=== PATIENT | female | born 1995 | race African-American/Black ===

== ENCOUNTER 2019-08-17 12:44 | Emergency (ER) | payer MEDICAID, OTHER ==
[~2019-08-17] VITALS: Ht 162.6 cm; Wt 170.0 kg
[2019-08-17 13:03] VITALS: BP 155/94
== END 2019-08-17 13:47 | disposition home or self-care (01) ==
LOC: ER 12:44
DX: J06.9 Acute upper respiratory infection, unspecified (principal)
CPT/HCPCS: 99283

== ENCOUNTER 2019-09-05 18:01 | Emergency (ER) | payer OTHER ==
[~2019-09-05] VITALS: Ht 167.6 cm; Wt 160.0 kg
[2019-09-05 20:53] LABS: CHLORIDE 109 mEq/L (98-107)
[2019-09-05 20:57] LABS: BASOPHILS % 0.9 % (0.0-2.0); EOSINOPHILS % 2.4 % (0.0-5.0); ETHANOL BLOOD < 10 mg/dL; HEMATOCRIT. 38.6 % (36.0-48.0); HEMOGLOBIN. 12.8 g/dL (12.0-16.0); LYMPHOCYTES % 32.5 % (20.0-50.0); MEAN CORPUSCULAR HEMOGLOBIN 27.2 pg (28.0-32.0); MEAN PLATELET VOLUME 9.2 fl (7.4-10.4); MONOCYTES % 8.3 % (2.0-8.0); NEUTROPHILS % 55.9 % (40.0-76.0); PLATELET 291 x1000/uL (130-400); RED BLOOD CELL COUNT 4.71 mill/uL (4.2-5.4); RED CELL DISTRIBUTION WIDTH 15.3 % (11.6-14.6)
[2019-09-05 20:58] LABS: CANNABINOID URINE SCREEN NEGATIVE (NEGATIVE); PHENCYCLIDINE URINE SCREEN NEGATIVE (NEGATIVE)
[2019-09-05 20:59] LABS: *BARBITURATES SCREEN URINE NEGATIVE (NEGATIVE); *BENZODIAZEPINES SCREEN URINE NEGATIVE (NEGATIVE); *COCAINE SCREEN URINE NEGATIVE (NEGATIVE); METHADONE URINE SCREEN NEGATIVE (NEGATIVE); OPIATES URINE SCREEN NEGATIVE (NEGATIVE)
[2019-09-05 21:13] LABS: *AMPHETAMINES SCREEN URINE PRESUMTIVE POSITIVE (NEGATIVE)
[2019-09-05] MEDS ORDERED: LORAZEPAM 0.5MG TABLET PO ONE (21:30)
[2019-09-06 19:53] LABS: CLARITY URINE CLEAR (CLEAR); COLOR URINE YELLOW (YELLOW); KETONES URINE TRACE (NEGATIVE); LEUKOCYTE ESTERASE URINE NEGATIVE (NEGATIVE); NITRITE URINE NEGATIVE (NEGATIVE); OCCULT BLOOD URINE NEGATIVE (NEGATIVE); PH URINE 5.5 (4.5-8.0); PROTEIN URINE NEGATIVE (NEGATIVE); SPECIFIC GRAVITY URINE 1.032 (1.005-1.030); UROBILINOGEN URINE 0.2 E.U./dL (0.2-1.0)
[2019-09-06] MEDS ORDERED: LORAZEPAM 1MG TABLET PO ONE (20:45)
[2019-09-07] MEDS ORDERED: ACETAMINOPHEN 325MG TABLET PO ONE (09:45)
[2019-09-08 00:03] VITALS: BP 129/71
== END 2019-09-08 00:22 ==
LOC: ER 18:01
DX: F20.9 Schizophrenia, unspecified (principal); R45.851 Suicidal ideations; M79.641 Pain in right hand; F15.10 Other stimulant abuse, uncomplicated
CPT/HCPCS: 36415; 73130; 80305; 80320; 81025; 82962; 99285; G0480

== ENCOUNTER 2021-12-11 20:02 | Emergency (ER) | payer MEDICAID, OTHER ==
[~2021-12-11] VITALS: Ht 167.6 cm; Wt 118.0 kg
[2021-12-11 22:27] LABS: EOSINOPHILS % 1.9 % (0.0-5.0); HEMOGLOBIN. 11.9 g/dL (12.0-16.0); LYMPHOCYTES % 30.7 % (20.0-50.0); MEAN CORPUSCULAR HEMOGLOBIN 26.6 pg (28.0-32.0); MEAN CORPUSCULAR VOLUME 80.7 fL (81.0-99.0); MEAN PLATELET VOLUME 8.6 fl (7.4-10.4); MONOCYTES % 7.7 % (2.0-8.0); NEUTROPHILS % 58.7 % (40.0-76.0); PLATELET 355 x1000/uL (130-400); RED BLOOD CELL COUNT 4.46 mill/uL (4.2-5.4)
[2021-12-11 22:34] LABS: CHLORIDE 110 mEq/L (98-107)
[2021-12-11 22:38] LABS: ETHANOL BLOOD < 10 mg/dL
[2021-12-11 23:03] LABS: CLARITY URINE CLOUDY (CLEAR); COLOR URINE YELLOW (YELLOW); KETONES URINE NEGATIVE (NEGATIVE); LEUKOCYTE ESTERASE URINE 2+ (NEGATIVE); NITRITE URINE NEGATIVE (NEGATIVE); OCCULT BLOOD URINE TRACE (NEGATIVE); PROTEIN URINE 1+ (NEGATIVE); SPECIFIC GRAVITY URINE 1.034 (1.005-1.030)
[2021-12-11 23:08] LABS: *AMPHETAMINES SCREEN URINE NEGATIVE (NEGATIVE); *BARBITURATES SCREEN URINE NEGATIVE (NEGATIVE); *BENZODIAZEPINES SCREEN URINE NEGATIVE (NEGATIVE); METHADONE URINE SCREEN NEGATIVE (NEGATIVE); OPIATES URINE SCREEN NEGATIVE (NEGATIVE)
[2021-12-11 23:09] LABS: PHENCYCLIDINE URINE SCREEN NEGATIVE (NEGATIVE)
[2021-12-11 23:11] LABS: *COCAINE SCREEN URINE PRESUMTIVE POSITIVE (NEGATIVE); CANNABINOID URINE SCREEN PRESUMTIVE POSITIVE (NEGATIVE)
[2021-12-12] MEDS: ARIPIPRAZOLE 5MG TABLET PO SCH (10:56)
[2021-12-12] MEDS ORDERED: TRAZODONE HCL 50MG TABLET PO SCH (21:00)
[2021-12-13] MEDS: ARIPIPRAZOLE 5MG TABLET PO SCH (10:10)
[2021-12-13 12:00] VITALS: BP 120/78
== END 2021-12-13 13:20 | disposition short-term general hospital (02) ==
LOC: ER 20:02
DX: U07.1 COVID-19 (principal); R45.851 Suicidal ideations; F14.10 Cocaine abuse, uncomplicated; F17.200 Nicotine dependence, unspecified, uncomplicated; F15.10 Other stimulant abuse, uncomplicated; I10 Essential (primary) hypertension; Z88.0 Allergy status to penicillin; Z86.59 Personal history of other mental and behavioral disorders
CPT/HCPCS: 36415; 80053; 80305; 80307; 80320; 80329; 81003; 85025; 99285; C9803; U0003; U0005; G0480

== ENCOUNTER 2022-01-01 16:46 | Emergency (ER) | payer MEDICAID ==
[~2022-01-01] VITALS: Ht 172.7 cm; Wt 137.0 kg
[2022-01-01] MEDS ORDERED: SODIUM CHLORIDE 0.9% 1,000 ML IV ONE (17:00)
[2022-01-01 17:41] LABS: BASOPHILS % 0.5 % (0.0-2.0); EOSINOPHILS % 2.6 % (0.0-5.0); HEMATOCRIT. 33.4 % (36.0-48.0); HEMOGLOBIN. 11.3 g/dL (12.0-16.0); LYMPHOCYTES % 23.1 % (20.0-50.0); MEAN CORPUSCULAR HEMOGLOBIN 27.6 pg (28.0-32.0); MEAN CORPUSCULAR VOLUME 81.4 fL (81.0-99.0); MEAN PLATELET VOLUME 8.7 fl (7.4-10.4); MONOCYTES % 10.2 % (2.0-8.0); NEUTROPHILS % 63.6 % (40.0-76.0); PLATELET 257 x1000/uL (130-400); RED CELL DISTRIBUTION WIDTH 14.8 % (11.6-14.6)
[2022-01-01 17:46] LABS: CHLORIDE 105 mEq/L (98-107)
[2022-01-01 17:49] LABS: ETHANOL BLOOD < 10 mg/dL
[2022-01-01 18:09] LABS: B-HCG QUANTITATIVE 47786 mIU/mL (<3)
[2022-01-01 18:28] VITALS: BP 135/60
[2022-01-01] MEDS ORDERED: PREN-52 MT (19:10)
== END 2022-01-01 16:57 | disposition home or self-care (01) ==
LOC: ER 16:46
DX: O99.511 Diseases of the respiratory system complicating pregnancy, first trimester (principal); O26.891 Other specified pregnancy related conditions, first trimester; F14.10 Cocaine abuse, uncomplicated; F15.10 Other stimulant abuse, uncomplicated; I10 Essential (primary) hypertension; Z98.890 Other specified postprocedural states; Z86.59 Personal history of other mental and behavioral disorders; Z88.0 Allergy status to penicillin; Z3A.01 Less than 8 weeks gestation of pregnancy
CPT/HCPCS: 36415; 76801; 76817; 80053; 80307; 80320; 80329; 84702; 85025; 86850; 86900; 86901; 93005; 99285; J7030; G0480

== ENCOUNTER 2022-01-18 17:11 | Emergency (ER) | payer MEDICAID ==
[~2022-01-18] VITALS: Ht 172.7 cm; Wt 180.0 kg
[~2022-01-18 17:11] MED LIST: PREN-52 MT
[2022-01-18] MEDS ORDERED: BENZTROPINE MESYLATE (17:22)
[2022-01-18] MEDS ORDERED: cogentin (17:22)
[2022-01-18] MEDS ORDERED: albuterol (17:22)
[2022-01-18] MEDS ORDERED: prozac (17:22)
[2022-01-18] MEDS ORDERED: chlorpromazine (17:22)
[2022-01-18] MEDS ORDERED: furosemide (17:22)
[2022-01-18] MEDS ORDERED: seroquel (17:22)
[2022-01-18] MEDS ORDERED: depakote (17:22)
[2022-01-18] MEDS ORDERED: haldol (17:22)
[2022-01-18 22:00] LABS: BASOPHILS % 0.4 % (0.0-2.0); EOSINOPHILS % 3.5 % (0.0-5.0); HEMATOCRIT. 32.3 % (36.0-48.0); HEMOGLOBIN. 10.7 g/dL (12.0-16.0); LYMPHOCYTES % 25.7 % (20.0-50.0); MEAN CORPUSCULAR HEMOGLOBIN 27.1 pg (28.0-32.0); MEAN CORPUSCULAR VOLUME 81.4 fL (81.0-99.0); MEAN PLATELET VOLUME 8.9 fl (7.4-10.4); MONOCYTES % 6.8 % (2.0-8.0); NEUTROPHILS % 63.6 % (40.0-76.0); PLATELET 258 x1000/uL (130-400); RED BLOOD CELL COUNT 3.96 mill/uL (4.2-5.4); RED CELL DISTRIBUTION WIDTH 15.4 % (11.6-14.6)
[2022-01-18 22:02] LABS: CHLORIDE 107 mEq/L (98-107)
[2022-01-18 22:06] LABS: ETHANOL BLOOD < 10 mg/dL
[2022-01-18 22:09] LABS: HCG SCREEN POSITIVE
[2022-01-18] MEDS ORDERED: POTASSIUM CHLORIDE 20MEQ TABLET SR PO ONE (22:15)
[2022-01-19 00:12] LABS: CLARITY URINE CLEAR (CLEAR); COLOR URINE YELLOW (YELLOW); KETONES URINE 1+ (NEGATIVE); LEUKOCYTE ESTERASE URINE 2+ (NEGATIVE); NITRITE URINE NEGATIVE (NEGATIVE); OCCULT BLOOD URINE NEGATIVE (NEGATIVE); PH URINE 6.5 (4.5-8.0); PROTEIN URINE NEGATIVE (NEGATIVE); SPECIFIC GRAVITY URINE 1.017 (1.005-1.030)
[2022-01-19 00:29] LABS: *AMPHETAMINES SCREEN URINE NEGATIVE (NEGATIVE); *BARBITURATES SCREEN URINE NEGATIVE (NEGATIVE); *BENZODIAZEPINES SCREEN URINE NEGATIVE (NEGATIVE)
[2022-01-19 00:30] LABS: *COCAINE SCREEN URINE NEGATIVE (NEGATIVE); CANNABINOID URINE SCREEN NEGATIVE (NEGATIVE); METHADONE URINE SCREEN NEGATIVE (NEGATIVE); OPIATES URINE SCREEN NEGATIVE (NEGATIVE); PHENCYCLIDINE URINE SCREEN NEGATIVE (NEGATIVE)
[2022-01-19] MEDS ORDERED: DIPHENHYDRAMINE 50MG CAPSULE PO ONE (02:45)
[2022-01-19] MEDS: CEPHALEXIN 250MG CAPSULE PO NR ×3 (06:00→06:03)
[2022-01-19] MEDS ORDERED: NITROFURANTOIN 100MG M/M CAPSULE PO SCH (09:00)
[2022-01-19] MEDS ORDERED: CEPHALEXIN 250MG CAPSULE PO ONE (19:45)
[2022-01-20] MEDS: PRENATAL VIT/FE FUMARATE/FA TABLET PO SCH (19:28)
[2022-01-21] MEDS ORDERED: OLANZAPINE 10 MG/VIAL IM ONE (08:15)
[2022-01-21] MEDS: PRENATAL VIT/FE FUMARATE/FA TABLET PO SCH (09:35)
[2022-01-22] MEDS: PRENATAL VIT/FE FUMARATE/FA TABLET PO SCH (09:19)
[2022-01-22 11:53] VITALS: BP 121/52
== END 2022-01-22 13:12 | disposition home or self-care (01) ==
LOC: ER 17:11
DX: R45.851 Suicidal ideations (principal); R44.0 Auditory hallucinations; J45.909 Unspecified asthma, uncomplicated; F31.9 Bipolar disorder, unspecified; I10 Essential (primary) hypertension; F14.10 Cocaine abuse, uncomplicated; F15.10 Other stimulant abuse, uncomplicated; Z79.899 Other long term (current) drug therapy; Z20.822 Contact with and (suspected) exposure to COVID-19
CPT/HCPCS: 36415; 76801; 80053; 80307; 80320; 80329; 81025; 84703; 85025; 87426; 99285; J3490; U0003; Q0163; G0480

== ENCOUNTER 2022-09-27 19:34 | Emergency (ER) | payer MEDICAID ==
[~2022-09-27] VITALS: Ht 175.3 cm; Wt 110.0 kg
[~2022-09-27 19:34] MED LIST changes: +BENZTROPINE MESYLATE; +albuterol; +chlorpromazine; +cogentin; +depakote; +furosemide; +haldol; +prozac; +seroquel
[2022-09-28] MEDS ORDERED: ACETAMINOPHEN 325MG TABLET PO ONE (09:00)
[2022-09-28 09:46] LABS: *BARBITURATES SCREEN URINE NEGATIVE (NEGATIVE); *BENZODIAZEPINES SCREEN URINE NEGATIVE (NEGATIVE); *COCAINE SCREEN URINE NEGATIVE (NEGATIVE); METHADONE URINE SCREEN NEGATIVE (NEGATIVE); OPIATES URINE SCREEN NEGATIVE (NEGATIVE); PHENCYCLIDINE URINE SCREEN NEGATIVE (NEGATIVE)
[2022-09-28 09:51] LABS: BASOPHILS % 0.4 % (0.0-2.0); EOSINOPHILS % 1.9 % (0.0-5.0); HEMATOCRIT. 34.5 % (36.0-48.0); LYMPHOCYTES % 22.2 % (20.0-50.0); MEAN CORPUSCULAR HEMOGLOBIN 23.5 pg (28.0-32.0); MEAN PLATELET VOLUME 8.6 fl (7.4-10.4); MONOCYTES % 9.8 % (2.0-8.0); NEUTROPHILS % 65.7 % (40.0-76.0); PLATELET 427 x1000/uL (130-400); RED BLOOD CELL COUNT 4.67 mill/uL (4.2-5.4); RED CELL DISTRIBUTION WIDTH 17.6 % (11.6-14.6)
[2022-09-28 10:00] LABS: CHLORIDE 104 mEq/L (98-107)
[2022-09-28 10:00] LABS: *AMPHETAMINES SCREEN URINE PRESUMTIVE POSITIVE (NEGATIVE); CANNABINOID URINE SCREEN PRESUMTIVE POSITIVE (NEGATIVE)
[2022-09-28 10:13] LABS: ETHANOL BLOOD < 10 mg/dL
[2022-09-28 11:18] LABS: HCG SCREEN NEGATIVE
[2022-09-28] MEDS: TRAZODONE HCL 50MG TABLET PO SCH (21:00)
[2022-09-28] MEDS: RISPERIDONE 1MG TABLET PO SCH (21:00)
[2022-09-28] MEDS ORDERED: LORAZEPAM 2MG/ML CPJ IM ONE (22:15)
[2022-09-28] MEDS ORDERED: HALOPERIDOL LACTATE 5MG/ML VIAL IM ONE (22:15)
[2022-09-29] MEDS: RISPERIDONE 1MG TABLET PO SCH ×2 (09:40→22:00)
[2022-09-29] MEDS: TRAZODONE HCL 50MG TABLET PO SCH (22:00)
[2022-09-30] MEDS: RISPERIDONE 1MG TABLET PO SCH (09:00)
[2022-09-30 12:30] VITALS: BP 150/65
== END 2022-09-30 13:07 ==
LOC: ER 19:34
DX: R45.851 Suicidal ideations (principal); I10 Essential (primary) hypertension; J45.909 Unspecified asthma, uncomplicated; Z20.822 Contact with and (suspected) exposure to COVID-19; Z88.0 Allergy status to penicillin; Z79.899 Other long term (current) drug therapy; Z86.59 Personal history of other mental and behavioral disorders
CPT/HCPCS: 36415; 80053; 80305; 80307; 80320; 80329; 84703; 85025; 87426; 93005; 99285; C9803; J1630; J2060; 99283; G0480